=== PATIENT | male | born 1955 | race American Indian/Alaskan Native ===

== ENCOUNTER 2019-11-02 11:48 | Day surgery (SDC) | payer OTHER ==
[~2019-11-02 11:48] MED LIST: ceFAZolin/Water 2 GM/20 ML 2 GM/20 ML SYRINGE IV NR
[2019-11-02] MEDS ORDERED: LACTATED RINGERS 1,000 ML ONE (13:11)
[2019-11-02] MEDS ORDERED: MIDAZOLAM 2 MG/2 ML INJ IV NR (13:38)
--- NOTE | 2019-11-02 13:41 | Anesthesia Consultation ---
Anesthesia Consult and Med Hx Date of service: 11/02/19 - Airway Anesthetic Teeth Evaluation: Dentures ROM Head & Neck: Adequate Mental/Hyoid Distance: Adequate Mallampati Class: Class II Intubation Access Assessment: Good - Pulmonary Exam CTA: Yes - Cardiac Exam Cardiac Exam: RRR - Pre-Operative Health Status ASA Pre-Surgery Classification: ASA3 - Pulmonary Hx Smoking: Yes Hx Sleep Apnea: Yes (Doesn't use CPAP) - Cardiovascular System Hx Hypertension: Yes Hx Heart Murmur: Yes (since ) - Central Nervous System CVA: Yes (ruptured aneurysm 2014) Hx Psychiatric Problems: Yes (PTSD) - Other Systems Hx Alcohol Use: Yes (Rare) Hx Cancer: No
--- NOTE | 2019-11-02 13:42 | Anesthesia Day of Surgery ---
Anesthesia Day of Surgery - Day of Surgery Patient Examined: Yes Patient H&P Reviewed: Yes Patient is NPO: Yes
[2019-11-02] MEDS ORDERED: LIDOCAINE MPF (2%) 20 MG/1 ML VIAL 5 ML ONE (14:34)
[2019-11-02] MEDS ORDERED: ONDANSETRON 4 MG/2 ML INJ ONE (14:34)
[2019-11-02] MEDS ORDERED: dexAMETHasone 20 MG/5 ML VIAL ONE (14:34)
[2019-11-02] MEDS ORDERED: fentaNYL 100 MCG/2 ML INJ ONE (14:35)
[2019-11-02] MEDS ORDERED: PROPOFOL 200 MG/20 ML VIAL IV ONE (14:35)
[2019-11-02] MEDS ORDERED: WATER FOR IRRIG STERILE 2000 ML IR ONE (15:13)
[2019-11-02] MEDS ORDERED: IOHEXOL 300 MG/ML 50ML IV ONE (15:19)
--- NOTE | 2019-11-02 15:28 | Short Stay Summary ---
Short Stay Documentation Date of service: 11/02/19 - History H&P: obtained from office - Allergies and Medications Current Medications: Allergies Iodinated Contrast Media Allergy (Verified 10/31/19 10:26) Unknown Home Medications Medication Instructions Recorded Confirmed Last Taken Type Furosemide [Lasix] 40 mg PO DAILY 10/30/13 10/31/19 Unknown History Metoprolol [Lopressor TAB] 100 mg PO DAILY 10/30/13 10/31/19 Unknown History amLODIPine 10 mg PO DAILY 10/30/13 10/31/19 Unknown History hydrALAZINE [Apresoline TAB] 25 mg PO BID 10/30/13 10/31/19 Unknown History lisinopriL [Zestril] 40 mg PO QDAY 10/30/13 10/31/19 Unknown History Active Medications Cefazolin Sodium (Ancef/Sterile Water 2 Gm/20 Ml) 2 gm in 20 mls @ 80 mls/hr IV PREOP NR; Protocol Stop: 11/02/19 23:59 Midazolam HCl (Versed) 2 mg IV PREOP NR Stop: 11/02/19 23:59 - Brief post op/procedure progress note Date of procedure: 11/02/19 Pre-op diagnosis: psa 6, BPH Post-op diagnosis: same Procedure: CYSTO, RPG, PUS 40CC/ BX Surgeon: MICHELE OSCAR Estimated blood loss: minimal Pathology: list (PROSTTE CORES) Specimen disposition: to lab Condition: stable - Hospital course Hospital course: [facility] ON CHART - Disposition Condition at discharge: Stable Disposition: - TO HOME OR SELFCARE Short Stay Discharge Plan Follow up with: [facility] [Primary Care Provider] - 7 Days
--- NOTE | 2019-11-02 15:42 | Operative Report ---
PREOPERATIVE DIAGNOSIS: Elevated PSA of 6, BPH. POSTOPERATIVE DIAGNOSES: Elevated PSA of 6, BPH. PROCEDURE: Cystoscopy, bilateral retrograde pyelograms, prostate ultrasound and biopsy (40 mL gland). SURGEON: Dung Vazquez MD ANESTHESIA: General. ESTIMATED BLOOD LOSS: Minimal. FLUIDS: Crystalloid. COMPLICATIONS: No complications. INDICATIONS: This 64-year-old was referred by the [facility] for evaluation of persistently elevated PSA. He also had some lower urinary tract symptoms and is on Lasix. Discussed options. He agreed to proceed with surgical intervention. He received his cardiac clearance from Dr. Eliane Robert. He also is a smoker and had a brain mass with surgical intervention in 2014. DESCRIPTION OF PROCEDURE: The patient was taken to the operative suite, placed in a supine position. After adequate general anesthesia, placed in a dorsal lithotomy position, prepped and draped in a sterile fashion. Pancystourethroscopy was performed with a 22-Togolese Storz cystoscope, no urethral abnormalities. His prostate displayed bilateral mild obstruction. In bladder, no tumors or stones were noted. Both ureteral orifices in normal position. Bilateral retrograde pyelograms were obtained with an 8-[place]og[place]ese [place] catheter and 8 mL of contrast. No filling defects or obstruction, appeared to have a shunt with tubing overlying the right collecting system. Next using a prostate ultrasound, real time ultrasound revealed a 40 g gland. No obvious lesions could be appreciated. Twelve core biopsy was taken, 4 cores at the base, at the mid, and then the apex of the prostate. He tolerated the procedure well. Rectal exam was benign. He was extubated and taken to recovery room in stable condition. He will go home on Bact[place] and [place]. JOB# [id number] [facility]
[2019-11-02 16:35] VITALS: BP 152/87
--- NOTE | 2019-11-02 16:59 | Ultrasound Report ---
Ultrasound Transrectal INDICATION: Abnormal PSA. COMPARISON: None available. FINDINGS: Transrectal sonography of the prostate gland was performed to guide a prostate biopsy. The prostate g land measures 4.3 x 4.6 x 4.0 cm with a volume of 40.9 cc. IMPRESSION: Enlarged prostate gland as above. Please see the procedure report for further details. Signer Name: Paxton Hooks MD Signed: 11/02/2019 4:55 PM Workstation Name: [id number]
--- NOTE | 2019-11-02 18:02 | Fluoroscopy Report ---
Bilateral retrograde pyelography INDICATION: Elevated PSA and prostatic enlargement FINDINGS: 8 views obtained from C-arm exam in the cystoscopy suite show selective injection of both u reteral orifices. The left ureter and left intrarenal collecting system show no definite abnormality. On the right side there is slight right hydronephrosis without hydroureter but the right renal pelvi s appears to drain completely on the drainage films perhaps due to prior pyeloplasty. Surgical clip o r hardware is seen over the right upper quadrant as well. Signer Name: Dmitri Hoskins MD Signed: 11/02/2019 5:58 PM Workstation Name: [id number]
== END 2019-11-02 17:10 | disposition home or self-care (01) ==
LOC: OR 11:48
PROVIDERS: ATTEND Urology
DX: N40.0 Benign prostatic hyperplasia without lower urinary tract symptoms (principal); N13.30 Unspecified hydronephrosis; G43.909 Migraine, unspecified, not intractable, without status migrainosus; I11.0 Hypertensive heart disease with heart failure; I50.9 Heart failure, unspecified; F17.210 Nicotine dependence, cigarettes, uncomplicated; G47.30 Sleep apnea, unspecified; K21.9 Gastro-esophageal reflux disease without esophagitis; M19.90 Unspecified osteoarthritis, unspecified site; Z91.041 Radiographic dye allergy status; Z72.89 Other problems related to lifestyle; Z79.899 Other long term (current) drug therapy; Z90.49 Acquired absence of other specified parts of digestive tract; Z98.890 Other specified postprocedural states; Z86.73 Personal history of transient ischemic attack (TIA), and cerebral infarction without residual deficits
CPT/HCPCS: 36415; 52005; 55700; 74420; 76872; 84132; 88305; A4217; C1758; J0690; J1100; J2405; J2704; J3010; J7120; Q9967; J2250